=== PATIENT | female | born 1980 | race Caucasian/White ===

== ENCOUNTER 2020-12-04 11:00 | Emergency (ER) | payer BC ==
[~2020-12-04] VITALS: Ht 182.9 cm; Wt 102.0 kg
[2020-12-04 11:38] VITALS: BP 149/85
[2020-12-04] MEDS ORDERED: HYDROcodone/APAP 5/325MG 1 TAB TABLET PO ONE (12:00)
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
[2020-12-04] MEDS ORDERED: HYDR-2761 PO (12:37)
== END 2020-12-04 13:13 | disposition home or self-care (01) ==
LOC: ER 11:00
DX: S80.12XA Contusion of left lower leg, initial encounter (principal); W22.8XXA Striking against or struck by other objects, initial encounter; Y93.89 Activity, other specified; Y92.89 Other specified places as the place of occurrence of the external cause; Y99.8 Other external cause status
CPT/HCPCS: 29515; 73590; 73600; 99284